=== PATIENT | male | born 1955 | race Caucasian/White ===

== ENCOUNTER 2018-12-16 09:15 | Inpatient (IN) | payer MEDICARE, OTHER, SELFPAY ==
[2018-12-16] VITALS (8 sets, daily range): BP systolic 111–157; BP diastolic 76–97; PULSE 86–109; RESP 17–20; TEMP 36.5–37.4; O2SAT 95–98; BMI 28.8; BMI 26.3
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
[2018-12-16 10:09] LABS: Absolute Lymphocyte Count 1.26 X10^3/ul (0.83-4.51); Absolute Neutrophil Count 2.8 X10^3/uL (2.0-7.7); Basophil# 0.04 X10^3/uL; Basophil% 0.8 % (0-1); Eosinophil# 0.03 X10^3/uL; Eosinophils% 0.6 % (0-5); Hematocrit 42.3 % (40-54); Hemoglobin 13.7 g/dl (13.0-16.5); Lymphocyte # 1.26 X10^3/ul (4.0); Lymphocyte % 24.7 % (19-41); Mean Corp Hgb Conc 32.4 g/gl (32-36); Mean Corpuscular Hgb 34.9 pg (27.0-32.0); Mean Corpuscular Volume 107.6 fL (80-94); Mean Platelet Vol. 10.5 fl (6.2-12.0); Monocyte% 19.6 % (0-10); Neutrophil # 2.77 X10^3/uL (2.7-7.7); Neutrophil % 54.1 % (47-70); POSITIVE COUNT NO; POSITIVE DIFFERENTIAL NO; POSITIVE MORPHOLOGY NO; Platelet Count 101 K/mm3 (150-450); RBC Distribution Width CV 14.4 % (11.6-14.6); RBC Distribution Width SD 56.7 fl (35.1-43.9); Red Blood Count 3.93 M/mm3 (4.6-6.2); White Blood Count 5.1 K/mm3 (4.4-11.0)
[2018-12-16 10:17] LABS: International Normalized Ratio 1.4; Prothrombin Time (Protime)PT. 16.7 SECONDS (11.7-14.9)
[2018-12-16 10:18] LABS: Partial Thromboplast Time 35.2 Seconds (24.1-36.2)
[2018-12-16 10:24] LABS: ALB/GLOB Ratio 0.7 RATIO (0.9-2.4); AST(SGOT) 131 U/L (15-37); Alanine Aminotransfer ALT/SGPT 67 U/L (16-61); Albumin, Serum 3.4 g/dL (3.2-5.0); Alkaline Phosphatase 127 U/L (45-117); Anion Gap 8 (5-15); BUN 20 mg/dL (7-18); BUN/Creat Ratio 24.9 RATIO (10-20); Chloride 108 mmol/L (98-107); EST Glomerular Filtration Rate 103 mL/min (>60); Est Glom Filt Rate - Afr Amer 124 mL/min (>60); Estimated Creatinine Clearance 89.06 ml/min; Globulin 4.6 g/dL (2.2-4.2); Glucose 96 mg/dL (74-106); Sodium Level 142 mmol/L (136-145)
[2018-12-16 10:29] LABS: Alcohol, Blood (Medical)-Serum < 3.0 mg/dL
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
[2018-12-16 11:57] LABS: Red Blood Cells-Urine 0 SEEN /hpf (0-5); Squamous Epithelial Cells - UA 0 SEEN /hpf (0-5)
[2018-12-16 11:59] LABS: Color, Urine Yellow (Yellow); Glucose, Dipstick Normal (Normal); Ketone-Dipstick 15 mg/dl (Negative); Leukocyte Esterase-Dipstick 25 /ul (Negative); Nitrite-Dipstick Negative (Negative); Occult Blood-Urine Negative /ul (Negative); Protein-Dipstick 15 mg/dl (Negative); Specific Gravity, Urine 1.025 (1.002-1.030); Urine Bilirubin Dipstick Negative (Negative); Urine Clarity Sl. Cloudy (Clear); Urine Urobilinogen 4 mg/dl (Normal)
[2018-12-16 12:07] LABS: Bacteria 1+ /hpf (None Seen); Mucous, Urine 1+ /hpf (<or=2+); White Blood Cells 0-5 SEEN /hpf (0-5)
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
[2018-12-16] MEDS: Gentamicin Sulfate 1 OPTH.BTL 2 DRP LEFT EYE (12:56)
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
--- NOTE | 2018-12-16 14:04 | ECHOD_ITS ---
Reason For Study: TIA/CVA Procedure This was a 2D Doppler, Color Flow transthoracic echocardiogram. The study was technically difficult. Exam performed portable in patient room. Left Ventricle Normal LV size. Left ventricular systolic function is normal. The estimated ejection fraction is 60 %. Stage 1 diastolic dysfunction. No regional wall motion abnormalities noted. Right Ventricle Normal RV size. Normal systolic function. Atria Normal left atrium. Normal right atrium. Intact atrial septum. Mitral Valve Normal mitral valve. Tricuspid Valve Normal tricuspid valve. Aortic Valve Trisinus/trileaflet aortic valve. Pulmonic Valve Normal pulmonic valve. Great Vessels Normal aortic root. The pulmonary artery is normal size. Normal inferior vena cava. Pericardium/Pleural No pericardial effusion. Medication Performed a rapid injection of agitated mix of 9 cc saline and 1cc air to assess for atrial septal defect. MMode/2D Measurements & Calculations LVIDd: 4.1 cm IVSd: 1.1 cm Ao root diam: 3.8 cm LVIDs: 2.7 cm LVPWd: 0.94 cm LA dimension: 3.6 cm FS: 35.3 % LAV(MOD-bp): 61.4 ml LA A4 area: 24.0 cm2 LAV(MOD-bp) Indexed: 30.7 ml/m2 LAV(MOD-sp2): 38.4 ml LAV(MOD-sp4): 66.9 ml Time Measurements MV dec time: 0.17 sec Doppler Measurements & Calculations MV E max yash: 63.0 cm/sec Lat Peak E' Yash: 10.6 cm/sec Med Peak E' Yash: 7.0 cm/sec MV A max yash: 84.9 cm/sec E/E' lat: 5.9 E/E' med: 9.0 MV E/A: 0.74 MV V2 max: 85.1 cm/sec MV P1/2t max yash: 61.0 cm/sec Ao V2 max: 142.1 cm/sec MV max P.9 mmHg MV P1/2t: 71.4 msec Ao max P.1 mmHg MV V2 mean: 50.4 cm/sec MV dec slope: 250.1 cm/sec2 Ao V2 mean: 95.4 cm/sec MV mean P.1 mmHg Ao mean P.1 mmHg MV V2 VTI: 15.7 cm MVA(P1/2t): 3.1 cm2 Ao V2 VTI: 23.2 cm LV V1 max: 122.5 cm/sec PA V2 max: 93.3 cm/sec LV V1 max P.0 mmHg LV V1 mean P.0 mmHg LV V1 mean: 81.0 cm/sec LV V1 VTI: 22.2 cm Interpretation Summary Normal LV size. Left ventricular systolic function is normal. The estimated ejection fraction is 60 %. Stage 1 diastolic dysfunction. Intact atrial septum Structurally normal valves. Ordering Physician: Danny Cox Referring Physician: Danny Cox Performed By: Greg Clifford RCS
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
[2018-12-16 14:25] LABS: Amphetamine Urine VISTA NEGATIVE (<1000 ng/mL); Barbiturate Urine VISTA NEGATIVE (< 200 ng/mL); Benzodiazepine Urine VISTA NEGATIVE (< 200 ng/mL); Cocaine Urine VISTA NEGATIVE (< 300 ng/mL); Ecstacy Urine VISTA NEGATIVE (< 500 ng/mL); Methadone Urine VISTA NEGATIVE (< 300 ng/mL); PCP Urine VISTA NEGATIVE (< 25 ng/mL); THC Urine VISTA NEGATIVE (< 50 ng/mL); Vista UDS pH Range 5
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
[2018-12-16 18:45] LABS: Vitamin B12 1754 pg/mL (211-911)
[2018-12-16 18:46] LABS: Thyroid Stim Hormone (TSH) 1.68 uIU/mL (0.358-3.74)
[2018-12-17] VITALS (12 sets, daily range): BP systolic 99–160; BP diastolic 59–91; PULSE 93–125; RESP 16–20; TEMP 36.5–37.4; O2SAT 94–97; BMI 26.3
[2018-12-17] MEDS: Neomycin/Polymyxin/Dexameth 5ML OPTH.BTL 2 DRP LEFT EYE ×4 (05:03→18:10)
[2018-12-17 06:58] LABS: Cholesterol 108 mg/dL (200); High Density Lipoprotein 13 mg/dL; Triglycerides 66 mg/dL; Very Low Density Lipoprotein 13 mg/dL (5-40)
--- NOTE | 2018-12-17 10:15 | RAD_ITS ---
CLINICAL HISTORY: Male, 63 years old. Facial paresthesia. PROCEDURE: LUMBAR PUNCTURE UNDER FLUOROSCOPIC GUIDANCE FLUOROSCOPY TIME (if supplied): (0:14) minutes/seconds, 2 images were obtained. CONSENT: The risks, benefits and alternatives to the procedure were explained to the patient, and the patient agreed to the procedure and signed the consent. SEDATION: STERILE BARRIER TECHNIQUE: The following sterile barrier precautions were used during the procedure: hand hygiene; use of 2% chlorhexidine aseptic; use of a cap, mask, sterile gown, sterile gloves, sterile full body drape, and a large sterile sheet. PROCEDURE/TECHNIQUE: The risks, benefits, and alternatives to the procedure were explained to patient, and the patient agreed to the procedure and signed a consent form for the procedure. A timeout was performed to confirm the patient's identity, the type of procedure, to be performed and the site of entry. TECHNIQUE: Under fluoroscopic guidance using sterile technique and after infiltration of the skin and subcutis soft tissues with 10 mL lidocaine 1% a 22-gauge needle is introduced in the lumbar thecal sac. The CSF opening pressures 9 cm H2O. 20 mL of clear CSF were removed and sent to lab for the for evaluation RAD/Fluoro Guided Lumbar Puncture IMPRESSION: Successful lumbar puncture. CSF opening pressures 9 CM H2O. 20 mL of clear CSF were removed. Electronically Signed: Gi Ayala, at 12:10 EDT Tel , Service support ,
--- NOTE | 2018-12-17 10:38 | CYSPIN_PTH ---
PATIENT: RODRIGO PEREZ LOC: [facility] U#:[id number] AGE/SX: 63/M ROOM: [facility] RE12/18/[address]: Dr. Danny Cox DO : 1955 BED: 1 DIS: 12/19/2018 SPEC #: [id number] RECD: 12/17/18 12:58 STATUS: DANIELA REQ #: [id number] KUNAL: 12/17/18 10:[address]: Danny Cox DEPT: CYTOLOGY RECD BY: Al Chandra ENTERED: 12/17/18 12:59 SP TYPE: CYSPIN FL OTHR DR: Dr. Jeramy Cooper DO Tissues: Cerebrospinal Fluid Procedures: Pap Stain (control) Special Stain Group II Cytospin Fluid HEADER OPERATION: Lumbar puncture PRE-OP DIAGNOSIS: Facial paresthesia; delirium TISSUE SUBMITTED: Cerebrospinal fluid for cytology DIAGNOSIS CYTOLOGY Cerebrospinal fluid for cytology (cytospin): Virtually acellular specimen. AM:pepper 12/18/18 CYTOLOGY STUDY Slides are reviewed. CYTOLOGY GROSS Received is 6 ml of clear colorless fluid labeled with the patient's name and and designated per the requisition as CSF. Submitted for cytology preparation. / 12/17/18 TC:5 CPT: 07845
[2018-12-17 10:48] LABS: Cytology, Body Fluid / CSF SEE PATHOLOGY REPORT
[2018-12-17 11:01] LABS: Body Fluid Polynuclear WBC # 0.001 10^3/uL; Total Cell Count CSF 0.001 10^3/uL (0.000-0.000); White Count, CSF 0.001 10^3/uL (0.000-5.000)
[2018-12-17 11:22] LABS: Appearance CSF (character) CLEAR (Clear); Auto B Fluid Analyzer BKGD Ct COUNTS W/IN LIMITS (W/IN LIMITS); Body Fluid QC Type(s) BF1Q; CSF Color COLORLESS (Colorless); RBC Count, Spinal Fluid 0 /mm-3 (None seen); Tested Tube # 4
[2018-12-17 11:27] LABS: Glucose Spinal Fluid 60 mg/dL (40-75)
--- NOTE | 2018-12-17 13:20 | NURSING ---
During conversation in the hallway with patient's and sister in law family it was expressed to this RN that patient drinks at least 3-4 beers per day and some wine although she does not know for sure what he does when she isnt there. She states that over the last several months his anxiety has seemed over the top to the point he rarely leaves the house.
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
--- NOTE | 2018-12-17 15:46 | PCM.PN.HOSP ---
Patient Problems: Active and Suspected Problems Delirium (Acute) Subjective: Still with confusion. 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 Per and [id number], they have noticed gradual changes: perseverating on receiving bad medication year ago in which he had an adverse rxn. It would come up often and at inappropriate times. Also, he has become more withdrawn. Previously, he was traveling, but now more reclusive. Vitals/I&O's: Vital Signs Temp Pulse Resp BP Pulse Ox 36.7 C 96 16 144/86 H 95 12/17/18 12:36 12/17/18 12:36 12/17/18 12:36 12/17/18 12:36 12/17/18 12:36 Oxygen Delivery Method Room Air Weight: 78.5 kg Body Mass Index (BMI) 26.3 Intake and Output for Last 24 Hours 12/15/18 12/16/18 12/17/18 23:59 23:59 23:59 Intake Total 300 / 300 200 / 200 Balance 300 / 300 200 / 200 General: Alert, - - pleasantly confused. HEENT: Atraumatic, Normocephalic Oral: Moist Mucosa, No Gingival or Mucosal Lesions/ Ulcerations Neck: No Nodes, Thyroid Normal Size and Texture Lungs: Clear to auscultation, Normal air movement, No rhonchi, No wheeze Cardiovascular: Regular rate, Regular Rhythm, Normal S1, Normal S2, No murmurs Abdomen: Bowel Sounds Present, Soft, Non Tender, Non-Distended, No Hepato-splenomegaly Extremities: No edema, No Calf Tenderness Microbiology Past 72 Hours 12/17/18 10:28 Csf, Spinal Fluid Gram Stain - Final Laboratory Results 12/16/18 09:55: Vitamin B12 1754 H 12/16/18 09:55: TSH 1.68 12/17/18 06:05: Triglycerides 66, Cholesterol 108, LDL Cholesterol 82, VLDL Cholesterol 13, HDL Cholesterol 13 L 12/17/18 06:05: RBC Folate Hemolysate Pending, RBC Folate Pending, Hematocrit Pending 12/17/18 10:28: CSF Glucose 60, CSF Total Protein 46.0 H 12/17/18 10:28: CSF VZV DNA (PCR) Pending, West [place] RNA (RT-PCR) Pending, [place] Interp Pending, Enterovirus RNA (PCR) Pending, HSV I DNA PCR Pending, HSV II DNA PCR Pending 12/17/18 10:28: Miscellaneous Cytology Pending 12/17/18 10:28: Fld Polynuclear WBCs # 0.001, Fld Polynuclear WBCs % 100.0, Fluid Mononuclear WBCs 0.000, Fld Mononuclear WBCs % 0.0, CSF Appearance CLEAR, CSF Color COLORLESS, CSF WBC 0.001, CSF RBC 0, CSF Cell Count Tube # 4, CSF Total Cell Counted 0.001 H, CSF Comment May follow Current Medications Acetaminophen (Tylenol) 650 mg PO Q4H PRN PRN PRN Reason: PAIN Magnesium Hydroxide (Milk Of Magnesia) 30 ml PO DAILY PRN PRN Reason: Constipation Neomycin/Polymyxin/Dexamethasone (Maxitrol) 2 drop LEFT EYE Q4H PRN PRN PRN Reason: ITCHING Last Admin: 12/17/18 12:41 Dose: 2 drop Ondansetron HCl (Zofran) 4 mg IV Q8H PRN PRN PRN Reason: NAUSEA/VOMITING Sodium Chloride () 5 - 15 ml IV UD PRN PRN Reason: SALINE FLUSH Medical Necessity - Tobacco Use Smoking Status: Former smoker Tobacco Use: Cigarettes Assessment/Plan All Active Problems Delirium (Acute) 1. Delirium: Patient has really nothing focal. MRI negative for stroke. LP unremarkable EEG pending. DW Dr. Ambriz. Consult pending. It appears more chronic (dementia, NPH, v other) possibly exacerbated by URI 2. DVT prophylaxis with SCDs. Hold off on chemical prophylaxis because of the lumbar puncture. Greater than 40 minutes of which greater than 50% of the time was discussing with the patient's family. Code Visit Inpatient E&M: 61079 Subs Hosp L3
--- NOTE | 2018-12-17 15:54 | PN_ITS ---
Patient Problems: Active and Suspected Problems Delirium (Acute) Subjective: Still with confusion. 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 Per and [id number], they have noticed gradual changes: perseverating on receiving bad medication year ago in which he had an adverse rxn. It would come up often and at inappropriate times. Also, he has become more withdrawn. Previously, he was traveling, but now more reclusive. Vitals/I&O's: Vital Signs Temp Pulse Resp BP Pulse Ox 36.7 C 96 16 144/86 H 95 12/17/18 12:36 12/17/18 12:36 12/17/18 12:36 12/17/18 12:36 12/17/18 12:36 Oxygen Delivery Method Room Air Weight: 78.5 kg Body Mass Index (BMI) 26.3 Intake and Output for Last 24 Hours 12/15/18 12/16/18 12/17/18 23:59 23:59 23:59 Intake Total 300 / 300 200 / 200 Balance 300 / 300 200 / 200 General: Alert, - - pleasantly confused. HEENT: Atraumatic, Normocephalic Oral: Moist Mucosa, No Gingival or Mucosal Lesions/ Ulcerations Neck: No Nodes, Thyroid Normal Size and Texture Lungs: Clear to auscultation, Normal air movement, No rhonchi, No wheeze Cardiovascular: Regular rate, Regular Rhythm, Normal S1, Normal S2, No murmurs Abdomen: Bowel Sounds Present, Soft, Non Tender, Non-Distended, No Hepato- splenomegaly Extremities: No edema, No Calf Tenderness Microbiology Past 72 Hours 12/17/18 10:28 Csf, Spinal Fluid Gram Stain - Final Laboratory Results 12/16/18 09:55: Vitamin B12 1754 H 12/16/18 09:55: TSH 1.68 12/17/18 06:05: Triglycerides 66, Cholesterol 108, LDL Cholesterol 82, VLDL Cholesterol 13, HDL Cholesterol 13 L 12/17/18 06:05: RBC Folate Hemolysate Pending, RBC Folate Pending, Hematocrit Pending 12/17/18 10:28: CSF Glucose 60, CSF Total Protein 46.0 H 12/17/18 10:28: CSF VZV DNA (PCR) Pending, West [place] RNA (RT-PCR) Pending, [place] Interp Pending, Enterovirus RNA (PCR) Pending, HSV I DNA PCR Pending, HSV II DNA PCR Pending 12/17/18 10:28: Miscellaneous Cytology Pending 12/17/18 10:28: Fld Polynuclear WBCs # 0.001, Fld Polynuclear WBCs % 100.0, Fluid Mononuclear WBCs 0.000, Fld Mononuclear WBCs % 0.0, CSF Appearance CLEAR, CSF Color COLORLESS, CSF WBC 0.001, CSF RBC 0, CSF Cell Count Tube # 4, CSF Total Cell Counted 0.001 H, CSF Comment May follow Current Medications Acetaminophen (Tylenol) 650 mg PO Q4H PRN PRN PRN Reason: PAIN Magnesium Hydroxide (Milk Of Magnesia) 30 ml PO DAILY PRN PRN Reason: Constipation Neomycin/Polymyxin/Dexamethasone (Maxitrol) 2 drop LEFT EYE Q4H PRN PRN PRN Reason: ITCHING Last Admin: 12/17/18 12:41 Dose: 2 drop Ondansetron HCl (Zofran) 4 mg IV Q8H PRN PRN PRN Reason: NAUSEA/VOMITING Sodium Chloride () 5 - 15 ml IV UD PRN PRN Reason: SALINE FLUSH Medical Necessity - Tobacco Use Smoking Status: Former smoker Tobacco Use: Cigarettes Assessment/Plan All Active Problems Delirium (Acute) 1. Delirium: * Patient has really nothing focal. * MRI negative for stroke. * LP unremarkable * EEG pending. * DW Dr. Ambriz. Consult pending. * It appears more chronic (dementia, NPH, v other) possibly exacerbated by URI 2. DVT prophylaxis with SCDs. Hold off on chemical prophylaxis because of the lumbar puncture. Greater than 40 minutes of which greater than 50% of the time was discussing with the patient's family. Code Visit Inpatient E&M: 33912 Subs Hosp L3
[2018-12-17] MEDS: 0.9% NaCl Peripheral Flush Adult/Peds IV ×2 (18:10→20:00)
[2018-12-17] MEDS: Folic Acid 1 MG Tablet PO (18:33)
[2018-12-17] MEDS: QUEtiapine 25 MG Tablet PO (22:28)
[2018-12-18] MEDS: Haloperidol Lactate 5 MG/ML Vial 1 MG IV (00:50)
[2018-12-18] MEDS: 0.9% NaCl Peripheral Flush Adult/Peds IV ×2 (00:52→23:38)
[2018-12-18 04:10] VITALS: BP 108/71; PULSE 94; RESP 18; TEMP 37.2; O2SAT 97
[2018-12-18 04:41] VITALS: PULSE 132
[2018-12-18] MEDS: Folic Acid 1 MG Tablet PO (08:03)
[2018-12-18] MEDS: Acetaminophen 325 MG Tablet 650 MG PO (09:39)
[2018-12-18 09:48] VITALS: BP 97/68; PULSE 93; RESP 18; TEMP 36.8; O2SAT 98
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
[2018-12-18 10:54] LABS: Pathologist Review Reviewed
--- NOTE | 2018-12-18 11:09 | PCM.PN.NEU ---
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 mild agitation. worried about taxes. Objective: oriented to person and place, not month or year knows evp operations - Physical Exam General: Alert Vital Signs Temp Pulse Resp BP Pulse Ox 36.8 C 93 18 97/68 98 12/18/18 09:48 12/18/18 09:48 12/18/18 09:48 12/18/18 09:48 12/18/18 09:48 Oxygen Delivery Method Room Air Weight: 78.5 kg Body Mass Index (BMI) 26.3 Intake and Output for Last 24 Hours 12/16/18 12/17/18 12/18/18 23:59 23:59 23:59 Intake Total 300 / 300 500 / 500 360 / 360 Output Total 400 / 400 Balance 300 / 300 100 / 100 360 / 360 Microbiology Past 72 Hours 12/17/18 10:28 Gram Stain - Final Csf, Spinal Fluid Laboratory Tests Past 24 Hrs 12/17/18 12/17/18 10:28 10:28 Fld Polynuclear WBCs # 0.001 Fld Polynuclear WBCs % 100.0 Fluid Mononuclear WBCs 0.000 Fld Mononuclear WBCs % 0.0 CSF Appearance CLEAR CSF Color COLORLESS CSF WBC 0.001 CSF RBC 0 CSF Cell Count Tube # 4 CSF Total Cell Counted 0.001 H CSF Comment Reviewed CSF Glucose 60 CSF Total Protein 46.0 H Medical Necessity - Tobacco Use Smoking Status: Former smoker Tobacco Use: Cigarettes Assessment/Plan All Active Problems Delirium (Acute)
--- NOTE | 2018-12-18 11:15 | PN.NEURO_ITS ---
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 mild agitation. worried about taxes. 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 - Physical Exam General: Alert Vital Signs Temp Pulse Resp BP Pulse Ox 36.8 C 93 18 97/68 98 12/18/18 09:48 12/18/18 09:48 12/18/18 09:48 12/18/18 09:48 12/18/18 09:48 Oxygen Delivery Method Room Air Weight: 78.5 kg Body Mass Index (BMI) 26.3 Intake and Output for Last 24 Hours 12/16/18 12/17/18 12/18/18 23:59 23:59 23:59 Intake Total 300 / 300 500 / 500 360 / 360 Output Total 400 / 400 Balance 300 / 300 100 / 100 360 / 360 Microbiology Past 72 Hours 12/17/18 10:28 Gram Stain - Final Csf, Spinal Fluid Laboratory Tests Past 24 Hrs 12/17/18 12/17/18 10:28 10:28 Fld Polynuclear WBCs # 0.001 Fld Polynuclear WBCs % 100.0 Fluid Mononuclear WBCs 0.000 Fld Mononuclear WBCs % 0.0 CSF Appearance CLEAR CSF Color COLORLESS CSF WBC 0.001 CSF RBC 0 CSF Cell Count Tube # 4 CSF Total Cell Counted 0.001 H CSF Comment Reviewed CSF Glucose 60 CSF Total Protein 46.0 H Medical Necessity - Tobacco Use Smoking Status: Former smoker Tobacco Use: Cigarettes Assessment/Plan All Active Problems Delirium (Acute)
--- NOTE | 2018-12-18 11:34 | CASEMGMT ---
During rounds physician said patient's said she can't handle him and he needs fdc placement. SW asked him about an inpatient geriatric psych stay. He did not feel patient meets the criteria. SW spoke with patient's and sister. Introduced self and role at [facility]. SW said physician indicated she was looking for placement. She said she never said that and no one has mentioned this to her. She said Dr Ambriz said he will be here another day or so. He wants to change around some medications and help get his sleep cycle back on track. She said he is thinking this may be part of the problem with confusion. TRINIDAD told her that right now as things stand he is still observation status and going to a fdc would be private pay. TRINIDAD told her the costs range from $170 a day up to the upper $200s a day. TRINIDAD told her SW/RN CM will follow and assist with d/c planning. Elisa AVENDANO MSW
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
[2018-12-18 16:00] VITALS: BP 115/73; PULSE 103; RESP 16; TEMP 36.7; O2SAT 98
[2018-12-18 19:30] VITALS: BP 131/79; PULSE 97; RESP 18; TEMP 36.8; O2SAT 96
[2018-12-18 20:08] LABS: Folate, Hemolysate Test 510.2 ng/mL (Not Estab.); Folate, RBC (Hct) Test 37.9 % (37.5-51.0)
[2018-12-18] MEDS: QUEtiapine 25 MG Tablet 50 MG PO (21:21)
[2018-12-18] MEDS: Neomycin/Polymyxin/Dexameth 5ML OPTH.BTL 2 DRP LEFT EYE (21:21)
[2018-12-18] MEDS: LORazepam 2 MG/ML Syringe 0.5 MG IV (23:35)
[2018-12-19 01:30] VITALS: BP 122/72; PULSE 93; RESP 18; TEMP 36.9; O2SAT 98
[2018-12-19 05:45] VITALS: BP 141/89; PULSE 98; RESP 18; TEMP 36.5; O2SAT 95
[2018-12-19] MEDS: Fluticasone 0.05% 1 SPRAY NASAL.SRY NASAL (09:26)
[2018-12-19] MEDS: Folic Acid 1 MG Tablet PO (09:26)
[2018-12-19 10:30] VITALS: BP 107/50; PULSE 100; RESP 16; TEMP 37.2; O2SAT 97
--- NOTE | 2018-12-19 12:23 | PCM.PN.NEU ---
Patient Problems: Active and Suspected Problems Delirium (Acute) Subjective: No new complaints. Continues to have circadian disruption and intermittent confusion. tells me that this morning he said the year was 2009 but currently he says 2018. Denies pain. Discussed home-going plans, consider rehab and shows me a group of supplements that he has purchased over the Internet which includes multiple vitamin supplements including the usual multivitamins as well as copper and kudzu root Objective: He is awake and alert. Cranial nerves are intact He has significant ataxia, including severe gait ataxia is unable to stand unassisted. There is mild asterixis. - Physical Exam Vital Signs Temp Pulse Resp BP Pulse Ox 37.2 C 100 16 107/50 L 97 12/19/18 10:30 12/19/18 10:30 12/19/18 10:30 12/19/18 10:30 12/19/18 10:30 Oxygen Delivery Method Room Air Weight: 78.5 kg Body Mass Index (BMI) 26.3 Intake and Output for Last 24 Hours 12/17/18 12/18/18 12/19/18 23:59 23:59 23:59 Intake Total 500 / 500 600 / 600 1127 / 1127 Output Total 400 / 400 150 / 150 Balance 100 / 100 450 / 450 1127 / 1127 Microbiology Past 72 Hours 12/17/18 10:28 Gram Stain - Final Csf, Spinal Fluid CSF Culture - Preliminary No growth in 24 hours. Final to follow. Laboratory Tests Past 24 Hrs 12/17/18 10:28 Miscellaneous Cytology SEE PATHOLOGY REPORT Medical Necessity - Tobacco Use Smoking Status: Former smoker Tobacco Use: Cigarettes Assessment/Plan All Active Problems Delirium (Acute) confusion: suspect combination of factors, most likely significant alcohol use with possible withdrawa and psychosis, circadian disruption, possible underlying mood disorder and dementia. 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 thiamine folate seroquel pt/ot Consider rehab
--- NOTE | 2018-12-19 12:32 | CASEMGMT ---
Addendum entered by Elisa Tabor 12/19/18 14:38: Patient was accepted to go to [facility] 4th floor Inpatient Rehab Unit. SW let patient's know this information. She spoke with patient and he is in agreement. Elisa SOLORZANO Original Note: Per Dr Ambriz he thinks patient would be a good rehab candidate. Patient and family in agreement with this plan. SW called Yancy in rehab and made referral. She will call TRINIDAD back and let her know. Elisa SOLORZANO
--- NOTE | 2018-12-19 13:57 | PCM.DC ---
- Discharge Diagnoses Current Active Problems: Current Active and Chronic Problems Delirium (Acute) You will use the following diet at home:: No restrictions Your food should be the consistency of: Regular Discharge Activity: Use Walker, - - up with assist Weight Bearing Status: Weight bearing as tolerated Call your doctor if you observe: - - worsening confusion. Allergies/Adverse Reactions: Allergies No Known Allergies Allergy (Verified 12/16/18 09:19) Medications to take at Discharge Acetaminophen [Tylenol Extra Strength] 500 mg PO BID 12/16/18 Fluticasone 0.05% [Flonase Nasal [place]] 0 spray NASAL DAILY nasal.sry 12/19/18 Folic Acid 1 mg PO DAILY@0800 tablet 12/19/18 Quetiapine Fumarate [Seroquel] 50 mg PO QHS tablet 12/19/18 Thiamine Hydrochloride [Vitamin B1] 100 mg PO DAILY #1 tablet 12/19/18 The following prescriptions were given: Thiamine Hydrochloride [Vitamin B1] 100 mg PO DAILY #1 tablet Primary Care Physician: Jeramy Cooper DO [Primary Care Provider] - Within 2 Weeks Test Results: Test results from this visit will be discussed in further detail at your follow-up appointment, if applicable. Please Follow Up With: Neurology When: 1 months Please Follow Up With: Geriatrics When: 1 month Please Follow Up With: Psychiatry When: 1 month Proposed Discharge Date: 12/19/18
--- NOTE | 2018-12-19 14:00 | DCINST_ITS ---
- Discharge Diagnoses Current Active Problems: Current Active and Chronic Problems Delirium (Acute) You will use the following diet at home:: No restrictions Your food should be the consistency of: Regular Discharge Activity: Use Walker, - - up with assist Weight Bearing Status: Weight bearing as tolerated Call your doctor if you observe: - - worsening confusion. Allergies/Adverse Reactions: Allergies No Known Allergies Allergy (Verified 12/16/18 09:19) Medications to take at Discharge Acetaminophen [Tylenol Extra Strength] 500 mg PO BID 12/16/18 Fluticasone 0.05% [Flonase Nasal [place]] 0 spray NASAL DAILY nasal.sry 12/19/18 Folic Acid 1 mg PO DAILY@0800 tablet 12/19/18 Quetiapine Fumarate [Seroquel] 50 mg PO QHS tablet 12/19/18 Thiamine Hydrochloride [Vitamin B1] 100 mg PO DAILY #1 tablet 12/19/18 The following prescriptions were given: Thiamine Hydrochloride [Vitamin B1] 100 mg PO DAILY #1 tablet Primary Care Physician: Jeramy Cooper DO [Primary Care Provider] - Within 2 Weeks Test Results: Test results from this visit will be discussed in further detail at your follow- up appointment, if applicable. Please Follow Up With: Neurology When: 1 months Please Follow Up With: Geriatrics When: 1 month Please Follow Up With: Psychiatry When: 1 month Proposed Discharge Date: 12/19/18
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
[2018-12-19] MEDS: Acetaminophen 325 MG Tablet 650 MG PO (14:51)
--- NOTE | 2018-12-19 14:59 | NURSING ---
Dr Ambriz paged two times to ask about inserting a santos catheter to obtain 24 hour urine due to the patient being incontinent. awaiting return call.
[2018-12-19 15:52] LABS: Folates, RBC Test 1346 ng/mL (>498)
--- NOTE | 2018-12-19 15:57 | NURSING ---
report called to RN on rehab unit
[2018-12-19 16:02] VITALS: BP 119/69; PULSE 89; RESP 17; TEMP 37.1; O2SAT 93
[2018-12-27 03:07] LABS: HSV 1 By PCR Negative (Negative)
[2018-12-27 13:51] LABS: Enterovirus By PCR Negative (Negative); HSV 2 By PCR Negative (Negative); West Nile Virus Qual by PCR Negative (.)
== END 2018-12-19 16:06 | DRG 948 ==
LOC: ED 11:03 → PCU 13:01
PROVIDERS: Psychiatry & Neurology Neurology; Emergency Provider Emergency Medicine; Family Provider Family Medicine; PCP Family Medicine
DX: R41.0 Disorientation, unspecified (principal); E11.9 Type 2 diabetes mellitus without complications; I10 Essential (primary) hypertension; Z87.891 Personal history of nicotine dependence
CPT/HCPCS: 36415; 62270; 70450; 70544; 70549; 70553; 71046; 77003; 80053; 80061; 80307; 80320; 81001; 82140; 82175; 82390; 82525; 82570; 82607; 82747; 82945; 83655; 83825; 84157; 84443; 85014; 85025; 85610; 85730; 87070; 87205; 87498; 87529; 87798; 88108; 88313; 89050; 89051; 92523; 93306; 95819; 97162; 97166; 97530; 99284; A9575; J7040; Q9957; A4216; G0480; J3490

== ENCOUNTER 2018-12-19 16:10 | Inpatient (IN) | payer MEDICARE, OTHER, SELFPAY ==
[2018-12-17 10:09] VITALS: BMI 26.3
[2018-12-19 16:15] VITALS: BP 114/82; PULSE 95; RESP 16; TEMP 36.8; O2SAT 94; BMI 27.2; BMI 27.3
[2018-12-19 20:11] VITALS: PULSE 95; RESP 16; O2SAT 94
[2018-12-19 22:00] VITALS: BP 119/68; PULSE 95; RESP 16; TEMP 36.4; O2SAT 94
[2018-12-19] MEDS: LORazepam 0.5 MG Tablet PO (22:35)
[2018-12-19] MEDS: QUEtiapine 25 MG Tablet 50 MG PO (22:35)
[2018-12-19] MEDS: Acetaminophen 500 MG Tablet PO (22:36)
[2018-12-19 23:15] LABS: Bedside Glucose 111 mg/dL (70-110)
[2018-12-20] MEDS: Menthol/Lanolin/Calamine/Znox 113 GM Tube 1 APPLIC TOPICAL ×2 (05:38→21:19)
[2018-12-20] MEDS: Enoxaparin 40 MG/0.4 ML Syringe SC (05:39)
[2018-12-20 06:04] LABS: Mean Corp Hgb Conc 33.3 g/gl (32-36); Mean Corpuscular Hgb 35.7 pg (27.0-32.0); Mean Corpuscular Volume 107.1 fL (80-94); Mean Platelet Vol. 10.9 fl (6.2-12.0); Platelet Count 112 K/mm3 (150-450); RBC Distribution Width CV 14.1 % (11.6-14.6); Red Blood Count 3.36 M/mm3 (4.6-6.2); White Blood Count 5.3 K/mm3 (4.4-11.0)
[2018-12-20 06:11] LABS: Scan Indicated on CBC? Y/N NO
[2018-12-20 06:17] LABS: Anion Gap 7 (5-15); BUN 14 mg/dL (7-18); BUN/Creat Ratio 25.7 RATIO (10-20); Calcium,Total 8.2 mg/dL (8.5-10.1); Chloride 112 mmol/L (98-107); Creatinine, Serum 0.54 mg/dL (0.70-1.30); EST Glomerular Filtration Rate 160 mL/min (>60); Est Glom Filt Rate - Afr Amer 194 mL/min (>60); Estimated Creatinine Clearance 131.94 ml/min; Glucose 88 mg/dL (74-106); Potassium 3.4 mmol/L (3.5-5.1); Sodium Level 143 mmol/L (136-145)
[2018-12-20 07:00] VITALS: BP 124/72; PULSE 87; RESP 16; TEMP 36.9; O2SAT 92
[2018-12-20 08:20] LABS: Bedside Glucose 142 mg/dL (70-110)
[2018-12-20] MEDS: Acetaminophen 500 MG Tablet PO ×2 (09:44→21:15)
[2018-12-20] MEDS: Thiamine Hydrochloride 100 MG Tablet PO (09:44)
[2018-12-20] MEDS: Folic Acid 1 MG Tablet PO (09:45)
[2018-12-20] MEDS: Fluticasone 0.05% 1 SPRAY NASAL.SRY NASAL (09:45)
[2018-12-20 10:55] LABS: Bedside Glucose 127 mg/dL (70-110)
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
--- NOTE | 2018-12-20 11:54 | PCM.RU.PYE ---
Admission Information Status Changes from Prescreening?: No changes Identified Actual Problem List:: Cognitve Impr/Memory Loss, Alteration in Sleep, Alteration in Nutrition, Mobility Impaired, Self Care Deficit, Know.Dfct/Disease Process, Ineffect.D/C Plan r/t Psy Potential Problem List:: DVT, Bleeding, Infection, UTI, Aspiration, Falls, Skin Integrity, Depression Risk of Complications DVT: LMWH, BLAYNE Hose, Sequential Compression Device Bleeding: Monitor Lab Values, Nursing to Teach Precautions for anti-coagulation therapy., Wound, if applicable, to be assessed every shift., Stroke patients assessed for lethargy or change in status. Infection: Clinical Staff to Monitor for S/S of infection:, S/S of infection include fever, redness, warmth, etc. Urinary Tract Infection: Monitor for frequency, burning, discomfort, or incontinence., Nursing will obtain urine sample for urinalysis and C&S when ordered. Aspiration: Clinical staff will monitor for coughing, drooling, congestion., Speech will evaluate swallowing and dsyphasia., Nursing will monitor patient swallowing during meals. Falls: Patient will be evaluated for Fall Precautions, Patient will be placed on Fall Precautions as indicated per protocol. Skin Breakdown: Nursing will assess skin daily using assessment tool., Nursing will place on Skin Breakdown Precautions as indicated. Pain: Clinical staff will assess patient's pain level per protocol., Medications will be given, if needed, and the pain level reassessed., Other methods: Massage, distraction, decrease stimulus, etc. used PRN. Plan of Care Patient requires physician specializing in physical medicine and rehab oversight to provide close medical supervision of rehab issues including: Pain Management, Sleep Problems, Bowel and Bladder, Medical and co-morbidity Management, DVT prophylaxis, Rehabilitation Leadership, Coordination of treatment team Patient needs Physical Therapy: For a minimum of 1 hour, At least 5 out of 7 days Patient needs Physical Therapy to improve:: Mobility, Mobility, Mobility, Strengthening, Transfers, Stretching, ROM, Endurance, Stairs, Gait, Balance Patient needs Occupational Therapy: For a minimum of 1 hour, At least 5 out of 7 days Patient needs Occupational Therapy to improve ADL's incl.: Eating, Grooming, Bathing, Dressing, Toileting, Toilet transfers, Community Reintegration, Higher functioning activities, Household tasks, Adaptive Equipment, Splinting, Other activities as determined Patient requires speech therapy: For a minimum of 1 hour, At least 5 out of 7 days Patient requires speech therapy for: Swallowing, Cognition, Language Skills, Compensatory Strategies Patient requires 24/ Rehabilitation Nursing for: Pain Issues, Identifying and preventing risk factors, Monitoring and reporting current medical conditions, Assisting with ambulation, transfer, and all ADL's, Teaching patients about disease process and medications, Family teaching, Providing safe environment, Bowel and Bladder Issues, Skin integrity, Medication Management Patient needs Foreclosure Field Inspector/ Case Management for: Discharge Planning, Arranging Home Equipment or Services, Family Interventions Patient needs Dietary and Nutrition Services for: Adequate Nutrition, Nutritional Supplements, Nutritional Education Goals Patient will remain: free from falls, or injury at time of discharge. Patient will perform bed mobility at: MOD I level of assist. Patient will complete transfers from bed to chair at: MOD I level of assist. Patient will ambulate: 100 feet, with MOD I assist, with LRD Patient will complete upper body dressing at: MOD I level of assist. Patient will complete lower body dressing at: MOD I level of assist. Patient will complete toileting at: MOD I level of assist. Patient will perform bathing at: MOD I level of assist. Patient will complete grooming at: MOD I level of assist. Patient will complete home management skills at: MOD I level of assist. Patient will achieve: 12 stairs, at MOD I assist Patient will have pain level of: of 3 or less Patient's skin will: remain intact, free from infection. Patient will receive: adequate nutrition. Discharge Planning Anticipated D/C Destination: Home with Outpt Therapy Was Preadmission Assessment Accurate?: Yes
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
--- NOTE | 2018-12-20 14:37 | EEG ---
- Electroencephalogram Date of service 12/17/18 This is an 18 channel echoencephalogram performed utilizing the International 10-20 electrode placement protocol along with EKG reference leads, photic stimulation and hyperventilation. The test is performed in this 63-year-old male with a history of delirium. Back around activity is 8 Hz symmetrically in the posterior leads which attenuates with eye-opening. Hyperventilation is performed for 2 minutes with good effort with no lateralizing Repliform changes in the post hyperventilatory phase is unremarkable. Patient remained awake throughout the recording. EKG is normal sinus rhythm throughout the recording and photic stimulation generates a normal symmetric driving response in the posterior leads. Impression: Normal awake electroencephalogram
--- NOTE | 2018-12-20 16:09 | CASEMGMT ---
REviewed and agree with SW student documentation completed on this day. DB Fuller
--- NOTE | 2018-12-20 16:28 | CHAPLAIN ---
Type of Pastoral Visit _x__ Initial Visit ___ Follow-up Visit ___ On-call Visit ___ General Patient Visit ___ Spiritual Assessment ___ Family Conference ___ Bereavement ___ Rapid Response ___ Code Blue ___ Other (describe below) Pastoral Care Referral From _x__ Patient ___ Family ___ Nurse ___ Physician ___ Council Member ___ Uniform Cap Operator ___ Other (describe below) Sacrament/Intervention _x__ Active listening ___ Anointing ___ Zoroastrian ___ Bereavement ___ Communion ___ Ashley exploration ___ ___ Life review _x__ Prayer ___ Reconciliation ___ Sacrament of Sick _x__ Supportive presence ___ Wedding ___ Other (describe below) Pastoral Comments
[2018-12-20 16:56] LABS: Bedside Glucose 135 mg/dL (70-110)
[2018-12-20 19:27] VITALS: O2SAT 94
[2018-12-20] MEDS: QUEtiapine 25 MG Tablet 50 MG PO (21:15)
[2018-12-20 21:25] VITALS: BP 122/80; PULSE 90; RESP 18; TEMP 37.2; O2SAT 94
[2018-12-20 22:36] LABS: Bedside Glucose 108 mg/dL (70-110)
--- NOTE | 2018-12-21 05:19 | NURSING ---
pt PA alarming multiple times, pt noted to be up unassisted x3 this shift. pt re-educated on safety and calling staff for all transfers. pt agreed. bed in low position with safety rails up x3, PA intact. will continue to monitor. chair pressure alarm added for safety measures.
--- NOTE | 2018-12-21 06:25 | NURSING ---
Reviewed and agree with LPNs fims and handoff
--- NOTE | 2018-12-21 06:29 | NURSING ---
Reviewed and agree with LPNs fims and handoff
[2018-12-21 06:59] VITALS: O2SAT 92
[2018-12-21] MEDS: Enoxaparin 40 MG/0.4 ML Syringe SC (07:10)
[2018-12-21 07:52] VITALS: BP 111/68; PULSE 88; RESP 16; TEMP 36.8; O2SAT 94
[2018-12-21] MEDS: Folic Acid 1 MG Tablet PO (07:54)
[2018-12-21] MEDS: Fluticasone 0.05% 1 SPRAY NASAL.SRY NASAL (07:54)
[2018-12-21] MEDS: Thiamine Hydrochloride 100 MG Tablet PO (07:55)
[2018-12-21] MEDS: Menthol/Lanolin/Calamine/Znox 113 GM Tube 1 APPLIC TOPICAL ×2 (07:55→22:36)
[2018-12-21] MEDS: Acetaminophen 500 MG Tablet PO ×2 (07:55→22:35)
[2018-12-21 19:58] VITALS: BP 137/83; PULSE 102; RESP 20; TEMP 36.7; O2SAT 95
[2018-12-21] MEDS: LORazepam 0.5 MG Tablet PO (22:34)
[2018-12-21] MEDS: QUEtiapine 25 MG Tablet 50 MG PO (22:35)
[2018-12-21] MEDS: Senna/Docusate Sodium 1 Tablet 2 TABLET PO (22:35)
[2018-12-22] MEDS: Enoxaparin 40 MG/0.4 ML Syringe SC (07:08)
[2018-12-22 08:04] VITALS: BP 129/80; PULSE 91; RESP 16; TEMP 36.7; O2SAT 96
[2018-12-22] MEDS: Acetaminophen 500 MG Tablet PO ×2 (09:57→21:22)
[2018-12-22] MEDS: Folic Acid 1 MG Tablet PO (09:57)
[2018-12-22] MEDS: Fluticasone 0.05% 1 SPRAY NASAL.SRY NASAL (09:57)
[2018-12-22] MEDS: Thiamine Hydrochloride 100 MG Tablet PO (09:57)
[2018-12-22] MEDS: Menthol/Lanolin/Calamine/Znox 113 GM Tube 1 APPLIC TOPICAL ×2 (09:58→21:22)
[2018-12-22] MEDS: Senna/Docusate Sodium 1 Tablet 2 TABLET PO (09:59)
--- NOTE | 2018-12-22 12:32 | NURSING ---
ambulated around halls with walker and standby assist x several laps.
[2018-12-22 21:00] VITALS: BP 117/69; PULSE 92; RESP 20; TEMP 36.7; O2SAT 95
[2018-12-22] MEDS: QUEtiapine 25 MG Tablet 50 MG PO (21:21)
--- NOTE | 2018-12-23 03:41 | NURSING ---
REVIEWED AND AGREE WITH STONE SPLITTER'S FIM AND HANDOFF CHARTING.
[2018-12-23] MEDS: Enoxaparin 40 MG/0.4 ML Syringe SC (06:53)
[2018-12-23] MEDS: Fluticasone 0.05% 1 SPRAY NASAL.SRY NASAL (07:29)
[2018-12-23] MEDS: Senna/Docusate Sodium 1 Tablet 2 TABLET PO (07:30)
[2018-12-23] MEDS: Thiamine Hydrochloride 100 MG Tablet PO (07:30)
[2018-12-23] MEDS: Folic Acid 1 MG Tablet PO (07:30)
[2018-12-23] MEDS: Menthol/Lanolin/Calamine/Znox 113 GM Tube 1 APPLIC TOPICAL ×2 (07:31→19:46)
[2018-12-23] MEDS: Acetaminophen 500 MG Tablet PO ×2 (07:32→19:46)
[2018-12-23 07:43] VITALS: BP 116/71; PULSE 93; RESP 18; TEMP 36.6; O2SAT 92
[2018-12-23 08:34] VITALS: O2SAT 92
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
[2018-12-23 19:40] VITALS: BP 131/83; PULSE 83; RESP 18; TEMP 37.1; O2SAT 96
[2018-12-23] MEDS: LORazepam 0.5 MG Tablet PO (19:45)
[2018-12-23] MEDS: QUEtiapine 25 MG Tablet 50 MG PO (19:45)
--- NOTE | 2018-12-24 03:20 | NURSING ---
Reviewed and agree with UNIX MANAGER documentation and FIMs charting
[2018-12-24] MEDS: Enoxaparin 40 MG/0.4 ML Syringe SC (05:34)
[2018-12-24 07:00] VITALS: BP 125/79; PULSE 85; RESP 16; TEMP 36.7; O2SAT 94
[2018-12-24] MEDS: Folic Acid 1 MG Tablet PO (07:55)
[2018-12-24] MEDS: Senna/Docusate Sodium 1 Tablet 2 TABLET PO ×2 (07:55→19:57)
[2018-12-24] MEDS: Thiamine Hydrochloride 100 MG Tablet PO (07:55)
[2018-12-24] MEDS: Acetaminophen 500 MG Tablet PO ×2 (07:55→19:57)
[2018-12-24] MEDS: Fluticasone 0.05% 1 SPRAY NASAL.SRY NASAL (07:55)
[2018-12-24] MEDS: Menthol/Lanolin/Calamine/Znox 113 GM Tube 1 APPLIC TOPICAL ×2 (07:56→19:58)
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
--- NOTE | 2018-12-24 16:43 | NURSING ---
c/o right ear pain, states it gets plugged up at home at times and effects his balance. has been putting peroxide drops in. requesting it to be assessed by a doctor. will notify rn.
[2018-12-24 19:40] VITALS: BP 129/74; PULSE 87; RESP 18; TEMP 36.3; O2SAT 97
[2018-12-24] MEDS: LORazepam 0.5 MG Tablet PO (19:57)
[2018-12-24] MEDS: QUEtiapine 25 MG Tablet 50 MG PO (19:57)
--- NOTE | 2018-12-25 01:26 | NURSING ---
Reviewed and agree with DIRECTOR INDUSTRIAL NURSING documentation and FIMs charting.
[2018-12-25] MEDS: Enoxaparin 40 MG/0.4 ML Syringe SC (05:32)
[2018-12-25 08:26] VITALS: BP 106/72; PULSE 102; RESP 18; TEMP 36.9; O2SAT 94
[2018-12-25] MEDS: Thiamine Hydrochloride 100 MG Tablet PO (09:04)
[2018-12-25] MEDS: Acetaminophen 500 MG Tablet PO ×2 (09:04→20:51)
[2018-12-25] MEDS: Folic Acid 1 MG Tablet PO (09:04)
[2018-12-25] MEDS: Fluticasone 0.05% 1 SPRAY NASAL.SRY NASAL (09:04)
[2018-12-25] MEDS: Senna/Docusate Sodium 1 Tablet 2 TABLET PO ×2 (09:04→20:51)
[2018-12-25] MEDS: Menthol/Lanolin/Calamine/Znox 113 GM Tube 1 APPLIC TOPICAL (09:05)
[2018-12-25] MEDS: QUEtiapine 25 MG Tablet 50 MG PO (20:50)
[2018-12-25] MEDS: LORazepam 0.5 MG Tablet PO (20:50)
[2018-12-25 22:00] VITALS: BP 134/80; PULSE 93; RESP 16; TEMP 37.2; O2SAT 96
[2018-12-26] MEDS: Enoxaparin 40 MG/0.4 ML Syringe SC (05:03)
[2018-12-26] MEDS: Thiamine Hydrochloride 100 MG Tablet PO (08:14)
[2018-12-26] MEDS: Fluticasone 0.05% 1 SPRAY NASAL.SRY NASAL (08:14)
[2018-12-26] MEDS: Acetaminophen 500 MG Tablet PO ×2 (08:14→20:55)
[2018-12-26] MEDS: Menthol/Lanolin/Calamine/Znox 113 GM Tube 1 APPLIC TOPICAL ×2 (08:15→20:55)
[2018-12-26] MEDS: Senna/Docusate Sodium 1 Tablet 2 TABLET PO (08:15)
[2018-12-26] MEDS: Folic Acid 1 MG Tablet PO (08:15)
[2018-12-26 10:00] VITALS: BP 118/76; PULSE 83; RESP 12; TEMP 36.6; O2SAT 95
--- NOTE | 2018-12-26 12:10 | CASEMGMT ---
Team meeting held today with pt, and sister in law present. PT is receiving PT/OT/ST and progressing well. Pt requesting to return home at this time and family is agreeable. Pt has shower chair and no other DME is needed. Therapy is recommending outpt Speech Therapy and pt and family are agreeable and would like to use [facility]. Pt sister in law agreeable to provide transportation. Pt is gone from the home 12 hours a day and pt will be alone. agreeable to be home with pt the first few days to assure pt transitions home safely. D/C date set for 12/27/18. Referral made to Vee at [employer] for ST and order faxed. No other d/c needs at this time. Plan: Home with 12/27/18 and outpt Speech Therapy. EVER Crowley
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
[2018-12-26] MEDS: QUEtiapine 25 MG Tablet 50 MG PO (20:55)
[2018-12-26 21:03] VITALS: BP 140/84; PULSE 84; RESP 18; TEMP 36.4; O2SAT 95
--- NOTE | 2018-12-27 01:26 | NURSING ---
Reviewed and agree with LPNs fims and handoff
[2018-12-27] MEDS: Enoxaparin 40 MG/0.4 ML Syringe SC (06:05)
[2018-12-27 07:00] VITALS: BP 127/71; PULSE 76; RESP 16; TEMP 36.9; O2SAT 96
[2018-12-27] MEDS: Acetaminophen 500 MG Tablet PO (08:31)
[2018-12-27] MEDS: Folic Acid 1 MG Tablet PO (08:31)
[2018-12-27] MEDS: Thiamine Hydrochloride 100 MG Tablet PO (08:31)
[2018-12-27] MEDS: Fluticasone 0.05% 1 SPRAY NASAL.SRY NASAL (08:31)
[2018-12-27] MEDS: Menthol/Lanolin/Calamine/Znox 113 GM Tube 1 APPLIC TOPICAL (08:32)
--- NOTE | 2018-12-27 08:34 | PCM.DC ---
- Discharge Diagnoses Current Active Problems: Debility Reason(s) for Visit for Discharge Instructions: Debility You will use the following diet at home:: Regular Your food should be the consistency of: Regular Discharge Activity: May Not Drive Call your doctor if you observe: Fever of 101 or Higher, Coldness, Increased Pain, Numbness or Tingling, Change in Color, Inability to urinate, Inability to have a bowel movement, Using more than one pad per hour, Shortness of breath, Dizziness, Fainting spells, Swelling in the ankles, Chest pain, Prolonged hiccoughing, Increased palpitations (irregular heartbeat), Calf discomfort, Uncontrolled pain Allergies/Adverse Reactions: Allergies No Known Allergies Allergy (Verified 12/19/18 18:45) Medications to take at Discharge Fluticasone 0.05% [Flonase Nasal [place]] 1 spray NASAL DAILY 12/19/18 Folic Acid 1 mg PO DAILY@0800 12/19/18 Quetiapine Fumarate [Seroquel] 50 mg PO QHS 12/19/18 Thiamine Hydrochloride [Vitamin B1] 100 mg PO DAILY 12/19/18 Primary Care Physician: Jeramy Cooper DO [Primary Care Provider] - Test Results: Test results from this visit will be discussed in further detail at your follow-up appointment, if applicable. Please Follow Up With: [facility] - Speech Therapy When: They will call you to make an appointment Please Follow Up With: [facility] (Annalise) When: Pt needs to make after discharge When: F/U with Hematology for chronic thrombocytopenia
--- NOTE | 2018-12-27 08:37 | DCINST_ITS ---
- Discharge Diagnoses Current Active Problems: Debility Reason(s) for Visit for Discharge Instructions: Debility You will use the following diet at home:: Regular Your food should be the consistency of: Regular Discharge Activity: May Not Drive Call your doctor if you observe: Fever of 101 or Higher, Coldness, Increased Pain, Numbness or Tingling, Change in Color, Inability to urinate, Inability to have a bowel movement, Using more than one pad per hour, Shortness of breath, Dizziness, Fainting spells, Swelling in the ankles, Chest pain, Prolonged hiccoughing, Increased palpitations (irregular heartbeat), Calf discomfort, Uncontrolled pain Allergies/Adverse Reactions: Allergies No Known Allergies Allergy (Verified 12/19/18 18:45) Medications to take at Discharge Fluticasone 0.05% [Flonase Nasal [place]] 1 spray NASAL DAILY 12/19/18 Folic Acid 1 mg PO DAILY@0800 12/19/18 Quetiapine Fumarate [Seroquel] 50 mg PO QHS 12/19/18 Thiamine Hydrochloride [Vitamin B1] 100 mg PO DAILY 12/19/18 Primary Care Physician: Jeramy Cooper DO [Primary Care Provider] - Test Results: Test results from this visit will be discussed in further detail at your follow- up appointment, if applicable. Please Follow Up With: [facility] - Speech Therapy When: They will call you to make an appointment Please Follow Up With: [facility] (Annalise) When: Pt needs to make after discharge When: F/U with Hematology for chronic thrombocytopenia
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
[2018-12-27 13:00] VITALS: BP 127/71; PULSE 76; RESP 17; TEMP 36.9; O2SAT 96
--- NOTE | 2018-12-27 13:00 | NURSING ---
Patient and aware of discharge instructions and verbalized understanding.
== END 2018-12-27 13:00 | disposition home or self-care (01) | DRG 948 ==
PROVIDERS: Admitting Provider Psychiatry & Neurology Neurology; Family Provider Family Medicine; PCP Family Medicine; Referring Provider Psychiatry & Neurology Neurology; Visit Provider Internal Medicine
DX: R53.81 Other malaise (principal); G11.9 Hereditary ataxia, unspecified; F10.10 Alcohol abuse, uncomplicated; E11.9 Type 2 diabetes mellitus without complications; I10 Essential (primary) hypertension; G47.20 Circadian rhythm sleep disorder, unspecified type; Z87.891 Personal history of nicotine dependence; D69.6 Thrombocytopenia, unspecified
CPT/HCPCS: 36415; 80048; 82962; 85027; 92507; 92523; 92526; 97110; 97112; 97116; 97162; 97166; 97530; 97535; 97802

== ENCOUNTER 2019-02-20 15:00 | Outpatient (RCR) | payer MEDICARE, OTHER, SELFPAY ==
[2018-12-19 16:15] VITALS: BMI 27.2
[2019-01-08 14:37] VITALS: BMI 27.1
== END 2019-02-20 19:00 | disposition home or self-care (01) ==
LOC: SP 15:00
PROVIDERS: Family Provider Family Medicine; PCP Family Medicine; Referring Provider Psychiatry & Neurology Neurology; Visit Provider Psychiatry & Neurology Neurology
DX: R53.81 Other malaise (principal); Z86.59 Personal history of other mental and behavioral disorders
CPT/HCPCS: 92507; 92523